=== PATIENT | female | born 2005 | race Caucasian/White ===

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

== ENCOUNTER 2024-01-14 23:05 | Emergency (ER) | payer OTHER, SELFPAY ==
[2024-01-14 23:12] VITALS: BP 125/84; PULSE 73; TEMP 37.1; O2SAT 95; BMI 17.2
--- NOTE | 2024-01-14 23:19 | PC.NURSE ---
Arrives with tissue in right nare, no bleeding around tissue. Patient reports nose bleed earlier today that subsided, reports blowing nose approx. one hour prior to arrival and now has bleeding from right nostril.
--- NOTE | 2024-01-14 23:29 | ED_ITS ---
HPI - Epistaxis General Chief Complaint: Epistaxis Stated Complaint: NOSE BLEED Time Seen by Provider: 01/14/24 23:10 Source: patient Mode of arrival: walk-in Limitations: no limitations History of Present Illness HPI Narrative: 18-year-old female presents for a 1 hour history of nosebleed. She did not have any trauma but she has had some nasal congestion recently. It was only bleeding from the right side, not the left. She does not take blood thinners and has had no bruising. She has not had problems with nosebleeds in the past. Related Data Previous Rx's ?Medication ?Instructions ?Recorded amoxicillin 500 mg capsule 500 mg PO TID 3 days #9 caps 01/14/24 Allergies Allergy/AdvReac Type Severity Reaction Status Date / Time No Known Drug Allergies Allergy Verified 01/14/24 23:12 Review of Systems ROS Narrative A ten point review of systems is negative except as noted above. PFSH PFSH Social History Smoking status: Never smoker Little interest or pleasure in doing things: not at all Feeling down, depressed, or hopeless: not at all Exam Narrative Exam Narrative: Nurses note and vital signs reviewed and patient is not hypoxic. General: The patient appears in no apparent distress. Patient is resting comfortably on cart. Skin: Warm, dry, no pallor noted. There is no rash noted. Head: Normocephalic, atraumatic Eye: Normal conjunctiva, no drainage Ears, Nose, Mouth, and Throat: oral mucosa is moist. Nares patent. No active bleeding but there is some dried blood in the right nares only. Cardiovascular: Regular Rate and Rhythm Respiratory: Patient is in no distress, no accessory muscle use, lungs are clear to auscultation, no wheezing, rales or rhonchi GI: Soft and nontender Musculoskeletal: The patient has no evidence of calf tenderness, no pitting edema, symmetrical pulses noted bilaterally Neurological: Awake and alert Psychiatric: Cooperative Constitutional Vital Signs, click to edit/add: Last Vital Signs Temp 98.7 F 01/14/24 23:12 Pulse 73 01/14/24 23:12 Resp 18 01/14/24 23:12 BP 125/84 01/14/24 23:12 Pulse Ox 95 01/14/24 23:12 O2 Del Method Room Air 01/14/24 23:12 Course Vital Signs Vital signs: Vital Signs Temperature 98.7 F 01/14/24 23:12 Pulse Rate 73 01/14/24 23:12 Respiratory Rate 18 01/14/24 23:12 Blood Pressure 125/84 01/14/24 23:12 Pulse Oximetry 95 01/14/24 23:12 Oxygen Delivery Method Room Air 01/14/24 23:12 Temperature 98.7 F 01/14/24 23:12 Pulse Rate 73 01/14/24 23:12 Respiratory Rate 18 01/14/24 23:12 Blood Pressure 125/84 01/14/24 23:12 Pulse Oximetry 95 01/14/24 23:12 Oxygen Delivery Method Room Air 01/14/24 23:12 MDM - Epistaxis MDM Narrative Medical decision making narrative: The following procedure was performed by me. Initially silver nitrate was utilized for cauterization but during the performing of this procedure she started having bleeding. I then placed a 5.5 cm anterior inflatable nasal packi ng in the right nares and this has resulted in good hemostasis. She is placed on prophylactic amoxicillin. Treatment diagnosis and follow-up were discussed with the patient. Differential Diagnosis Differential diagnosis: Likely anterior epistaxis and posterior epistaxis Discharge Plan Discharge Chief Complaint: Epistaxis Clinical Impression: Epistaxis Patient Disposition: Home, Self-Care Time of Disposition Decision: 23:52 Condition: Good Mode of Transportation: Private Vehicle Prescriptions / Home Meds: New amoxicillin 500 mg capsule 500 mg PO TID 3 Days Qty: 9 0RF Print Language: Kinyarwanda Instructions: Nosebleed (ED) Additional Instructions: Packing to be removed in [address] Blank, ENT. If unable to see him see your PCP. If unable to see them, come here to have it removed. Referrals: [facility] [Primary Care Provider] - 1 week Kina Blank MD [Physician] - 01/17/24
[2024-01-14] MEDS: ACETAMINOPHEN 300 MG/ 30 MG CODEINE TABLET 1 TAB PO (23:36)
[2024-01-14] MEDS: SILVER NITRATE APPLICATOR STICK 1 APPLIC TOPICAL (23:36)
== END 2024-01-15 00:06 | disposition home or self-care (01) ==
PROVIDERS: Emergency Provider Emergency Medicine
DX: R04.0 Epistaxis (principal)
CPT/HCPCS: 30901; 99283

== ENCOUNTER 2024-01-17 10:56 | Emergency (ER) | payer OTHER, SELFPAY ==
[2024-01-17 11:01] VITALS: BP 109/87; PULSE 96; TEMP 36.6; O2SAT 99; BMI 17.2
--- NOTE | 2024-01-17 11:14 | ED.GENADUL1 ---
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 She was seen here few days ago and had a nosebleed and packing was necessary. Since then she has had some pain and pressure but no further bleeding. Related Data Previous Rx's ?Medication ?Instructions ?Recorded amoxicillin 500 mg capsule 500 mg PO TID 3 days #9 caps 01/14/24 Allergies Allergy/AdvReac Type Severity Reaction Status Date / Time No Known Drug Allergies Allergy Verified 01/17/24 11:01 Opioid HPI Opioid Management Most Recent Opioid Data: Last Pain Scale 7 01/23/23 18:49 Review of Systems ROS Narrative A ten point review of systems is negative except as noted above. PFSH PFSH Social History Smoking status: Never smoker Little interest or pleasure in doing things: not at all Feeling down, depressed, or hopeless: not at all Exam Narrative Exam Narrative: Nurses note and vital signs reviewed and patient is not hypoxic. General: The patient appears well and in no apparent distress. Skin: Warm, dry, no pallor noted. There is no rash noted. Head: Normocephalic, atraumatic Eye: Normal conjunctiva, no drainage Ears, Nose, Mouth, and Throat: oral mucosa is moist. Nasal packing present in the right nares. Cardiovascular: Regular Rate and Rhythm Respiratory: Patient is in no distress, no accessory muscle use GI: Soft and nontender Musculoskeletal: No joint swelling Neurological: Awake and alert Psychiatric: Cooperative Constitutional Vital Signs, click to edit/add: Last Vital Signs Temp 97.8 F 01/17/24 11:01 Pulse 96 H 01/17/24 11:01 Resp 18 01/17/24 11:01 BP 109/87 01/17/24 11:01 Pulse Ox 99 01/17/24 11:01 O2 Del Method Room Air 01/17/24 11:01 Course Vital Signs Vital signs: Vital Signs Temperature 97.8 F 01/17/24 11:01 Pulse Rate 96 H 01/17/24 11:01 Respiratory Rate 18 01/17/24 11:01 Blood Pressure 109/87 01/17/24 11:01 Pulse Oximetry 99 01/17/24 11:01 Oxygen Delivery Method Room Air 01/17/24 11:01 Temperature 97.8 F 01/17/24 11:01 Pulse Rate 96 H 01/17/24 11:01 Respiratory Rate 18 01/17/24 11:01 Blood Pressure 109/87 01/17/24 11:01 Pulse Oximetry 99 01/17/24 11:01 Oxygen Delivery Method Room Air 01/17/24 11:01 Medical Decision Making MDM Narrative Medical decision making narrative: I have remove nasal packing. She has had no further bleeding and is able to be discharged home. Treatment diagnosis and follow-up were discussed with the patient. Differential Diagnosis Differential Diagnosis: Nasal packing removal, epistaxis Discharge Plan Discharge Chief Complaint: Recheck/Abnormal Lab/Rx Clinical Impression: Encounter for removal of nasal packing Patient Disposition: Home, Self-Care Time of Disposition Decision: 11:16 Condition: Good Mode of Transportation: Private Vehicle Prescriptions / Home Meds: No Action amoxicillin 500 mg capsule 500 mg PO TID 3 Days Qty: 9 0RF Print Language: Bolivian Instructions: Nosebleed (ED) Referrals: [facility] [Primary Care Provider] - 1 week
== END 2024-01-17 11:34 | disposition home or self-care (01) ==
PROVIDERS: Emergency Provider Emergency Medicine
DX: Z48.00 Encounter for change or removal of nonsurgical wound dressing (principal)
CPT/HCPCS: 99281